=== PATIENT | female | born 1960 | race Caucasian/White ===

== ENCOUNTER 2018-05-13 05:52 | Inpatient (IN) | payer OTHER ==
[2018-05-06 09:26] VITALS: BMI 33.3
[~2018-05-13 05:52] MED LIST: CEFAZOLIN 2 GM/D5W 2 GM/50 ML ML IVPB ONE; CELECOXIB 200 MG CAPSULE PO ONE; PANTOPRAZOLE 40 MG TABLET (FP) PO ONE; ROPIVICAINE 0.2%/MORPH PF/KETOROLAC - 51ML DISP.SYRINGE IA ONE; TRANEXAMIC ACID 1000 MG/10 ML VIAL IVPUSH ONE; oxyCODONE HCL 10 MG SUSTAINED ACTING TABLET PO ONE
[2018-05-13] MEDS ORDERED: oxyCODONE HCL 10 MG SUSTAINED ACTING TABLET ONE (06:47)
[2018-05-13] MEDS ORDERED: PANTOPRAZOLE 40 MG TABLET (FP) ONE (06:47)
[2018-05-13] MEDS ORDERED: CELECOXIB 200 MG CAPSULE ONE (06:48)
[2018-05-13] MEDS ORDERED: BUPIVACAINE LIPOSOME/PF (EXPAREL) 266 MG/20 ML VIAL ONE (07:35)
[2018-05-13] MEDS ORDERED: BUPIVACAINE HCL/PF (5 MG/ML) 30 ML VIAL IJ ONE (07:35)
[2018-05-13] MEDS ORDERED: SODIUM CHLORIDE 0.9% P/F 10 ML VIAL IJ ONE (07:35)
[2018-05-13] MEDS ORDERED: MIDAZOLAM HCL 2 MG/2 ML SINGLE DOSE VIAL ONE (07:35)
--- NOTE | 2018-05-13 07:58 | HP ---
Admitting History and Physical - Admission Chief Complaint: right knee pain x years History of Present Illness: 57 year old female presents in regard to her right knee. Status post previous right total knee arthroplasty. Patient complains of pain, limited ROM, difficulty ambulating and difficulty completing ADLs. Patient has failed conservative treatment measures including PO medication, activity modification, injections and exercise program. At this point, patient would like to proceed with surgical intervention - Revision right total knee arthroplasty. 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 - Smoking History Smoking history: Former smoker Have you smoked in the past 12 months: No If you are a former smoker, when did you quit?: 10 y ago - Alcohol/Substance Use Hx Alcohol Use: No Home Medications - Allergies Allergies/Adverse Reactions: Allergies Allergy/AdvReac Type Severity Reaction Status Date / Time gabapentin [From Neurontin] Allergy seizure Verified 05/06/18 09:38 metoclopramide [From Reglan] Allergy Rash Verified 05/06/18 09:38 Penicillins Allergy Rash Verified 05/06/18 09:38 prochlorperazine Allergy Verified 05/06/18 09:38 [From Compazine] sumatriptan [From Imitrex] Allergy Rash Verified 05/06/18 09:38 trazodone Allergy Rash Verified 05/06/18 09:38 amitriptyline [From Elavil] AdvReac urine Verified 05/06/18 09:38 retention duloxetine [From Cymbalta] AdvReac internal Verified 05/06/18 09:38 bleeding - Home Medications Home Medications: Ambulatory Orders Albuterol Sulfate Inhaler - [Ventolin Hfa Inhaler -] 1 puff IH PRN PRN 05/06/18 Cetirizine HCl 10 mg PO DAILY 05/06/18 Cholecalciferol (Vitamin D3) [Vitamin D3] 1,000 unit PO DAILY 05/06/18 Cyclobenzaprine HCl [Flexeril -] 10 mg PO DAILY 05/06/18 Fentanyl 50 mcg TD DAILY 05/06/18 Furosemide [Lasix] 20 mg PO DAILY 05/06/18 Lubiprostone [Amitiza] 24 mcg PO DAILY 05/06/18 Omeprazole Magnesium [Prilosec Otc] 20 mg PO DAILY 05/06/18 Oxycodone HCl/Acetaminophen [Percocet 10-325 mg Tablet] 1 each PO TID 05/06/18 Pregabalin [Lyrica] 100 mg PO TID 05/06/18 Propranolol HCl 40 mg PO BID 05/06/18 Salmeterol/Fluticasone [Advair 100Mcg/50Mcg -] 1 inh IH DAILY 05/06/18 Topiramate [Topamax] 50 mg PO DAILY 05/06/18 Physical Examination Vital Signs: Vital Signs Temperature 98 F 05/13/18 06:54 Pulse Rate 56 L 05/13/18 06:54 Respiratory Rate 18 05/13/18 06:54 Blood Pressure 130/82 05/13/18 06:54 O2 Sat by Pulse Oximetry (%) Constitutional: Yes: Well Nourished, No Distress Eyes: Yes: Conjunctiva Clear HENT: Yes: Atraumatic, Normocephalic Neck: Yes: Supple Cardiovascular: Yes: Regular Rate and Rhythm Respiratory: Yes: Regular Gastrointestinal: Yes: Soft ...Rectal Exam: Yes: Deferred Musculoskeletal: Yes: Joint Swelling (Right knee) Assessment/Plan 57 year old female presents in regard to her right knee. Status post previous right total knee arthroplasty. Patient complains of pain, limited ROM, difficulty ambulating and difficulty completing ADLs. Patient has failed conservative treatment measures including PO medication, activity modification, injections and exercise program. At this point, patient would like to proceed with surgical intervention - Revision right total knee arthroplasty. Pros, cons , risks, benefits and alternatives of a revision right total knee arthroplasty was discussed with the patient at length. Patient confirms her understanding and consents to proceed with a revision right total knee arthroplasty.
[2018-05-13] MEDS ORDERED: TRANEXAMIC ACID 1000 MG/10 ML VIAL ONE ×2 (08:00→08:53)
[2018-05-13] MEDS ORDERED: VANCOMYCIN 1,000 MG VIAL (RESTRICTED TO ID ONLY) ONE (08:01)
[2018-05-13] MEDS ORDERED: ceFAZolin SODIUM 1 GM VIAL ONE ×6 (08:01→14:27)
[2018-05-13] MEDS ORDERED: ROPIVICAINE 0.2%/MORPH PF/KETOROLAC - 51ML DISP.SYRINGE IA ONE ×3 (08:02→14:16)
[2018-05-13] MEDS ORDERED: PROPOFOL 20 ML ONE ×6 (08:11→13:08)
[2018-05-13] MEDS ORDERED: TRANEXAMIC ACID 1000 MG/10 ML VIAL IVPB ONE ×2 (09:43→14:16)
[2018-05-13] MEDS ORDERED: VANCOMYCIN 1,000 MG VIAL (RESTRICTED TO ID ONLY) IVPB ONE ×2 (09:44→14:16)
[2018-05-13] MEDS ORDERED: ePHEDrine SULFATE 50 MG/1 ML AMPULE ONE (10:22)
[2018-05-13] MEDS ORDERED: GLYCOPYRROLATE 0.2 MG/1 ML VIAL ONE (11:06)
[2018-05-13] MEDS ORDERED: KETOROLAC TROMETHAMINE 30 MG/1 ML VIAL ONE (13:45)
[2018-05-13] MEDS ORDERED: ACETAMINOPHEN INJECTION 100 ML IVPB ONE (13:45)
[2018-05-13] MEDS ORDERED: traMADol HCL 50 MG TABLET ONE (13:45)
[2018-05-13] MEDS ORDERED: ONDANSETRON 4 MG/2 ML VIAL IVPUSH PRN ×2 (14:19→15:53)
[2018-05-13] MEDS ORDERED: oxyCODONE HCL 5 MG TABLET PO PRN (14:20)
[2018-05-13] MEDS ORDERED: LACTATED RINGERS SOLUTION 1,000 ML IV SCH ×2 (14:30→16:00)
--- NOTE | 2018-05-13 15:49 | OP ---
Operative Note - Note: Operative Date: 05/13/18 Pre-Operative Diagnosis: R knee painful/failed knee replacement Operation: Revision R TKA Findings: see dictation Post-Operative Diagnosis: Same as Pre-op Surgeon: Jasper Mercedes Sewing Supervisor: Nguyen Arriaga Anesthesia: Spinal Estimated Blood Loss (mls): 200
[2018-05-13] MEDS ORDERED: ALBUTEROL SO4 8 GM HFA INHALER IH PRN (15:51)
[2018-05-13] MEDS ORDERED: ACETAMINOPHEN 1000 MG/100 ML VIAL (NON FORMULARY) IVPB ONE (15:53)
[2018-05-13] MEDS ORDERED: MAGNESIUM HYDROX 2400MG/30ML ORAL SUSPENSION 30 ML CUP PO PRN (15:53)
[2018-05-13] MEDS ORDERED: MAG HYDROX/AL HYDROX/SIMETH 30 ML UNIT-DOSE CUP PO PRN (15:53)
[2018-05-13] MEDS ORDERED: FENTANYL PATCH WASTE TD PRN (16:06)
[2018-05-13] MEDS: traMADol HCL 50 MG TABLET PO SCH ×2 (16:08→22:31)
[2018-05-13] MEDS: oxyCODONE HCL 5 MG TABLET PO PRN (18:28)
[2018-05-13] MEDS ORDERED: DEXAMETHASONE SOD PHOSPHATE 10 MG/1 ML VIAL IVPB ONE (20:00)
[2018-05-13] MEDS: SENNOSIDES/DOCUSATE COMBO (SENNA PLUS) TABLET (UD) PO SCH (22:18)
[2018-05-13] MEDS: PREGABALIN 50 MG CAPSULE PO SCH (22:30)
[2018-05-13] MEDS: ASCORBIC ACID 500 MG TABLET (FP) PO SCH (22:30)
[2018-05-13] MEDS: oxyCODONE HCL 10 MG SUSTAINED ACTING TABLET PO SCH (22:31)
[2018-05-13] MEDS: ACETAMINOPHEN 325 MG TABLET (FP) PO SCH (22:31)
[2018-05-13] MEDS: CEFAZOLIN 2 GM/D5W 2 GM/50 ML ML IVPB SCH (22:32)
[2018-05-14] MEDS: traMADol HCL 50 MG TABLET PO SCH ×4 (03:17→22:03)
[2018-05-14] MEDS: ACETAMINOPHEN 325 MG TABLET (FP) PO SCH ×4 (03:18→22:04)
[2018-05-14] MEDS: PREGABALIN 50 MG CAPSULE PO SCH ×3 (06:07→22:03)
[2018-05-14] MEDS: CEFAZOLIN 2 GM/D5W 2 GM/50 ML ML IVPB SCH (06:11)
[2018-05-14 07:54] LABS: HEMATOCRIT 33.7 % (32.4-45.2); HEMOGLOBIN 11.2 GM/dl (10.7-15.3); MCH 30.4 pg (25.7-33.7); MCHC 33.3 g/dl (32.0-36.0); MEAN CELL VOLUME 91.4 fl (80-96); MEAN PLT VOLUME 10.3 fl (7.5-11.1); PLATELET COUNT 178 K/MM3 (134-434); RBC 3.69 M/mm3 (3.60-5.2); RDW 13.6 % (11.6-15.6); WHITE BLOOD COUNT 6.4 K/mm3 (4.0-10.8)
[2018-05-14] MEDS: ASPIRIN 325 MG TABLET PO SCH ×2 (08:13→08:16)
[2018-05-14 08:16] LABS: BLOOD UREA NITROGEN 12 mg/dl (7-18); CHLORIDE 103 mmol/L (98-107); CREATININE 0.8 mg/dl (0.6-1.3); GLUCOSE,RANDOM 173 mg/dl (74-106); POTASSIUM 3.8 mmol/L (3.5-5.1); SODIUM 135 mmol/L (136-145)
--- NOTE | 2018-05-14 08:16 | OP ---
DATE OF OPERATION: 05/13/2018 PREOPERATIVE DIAGNOSIS: Right painful/loose total knee replacement. POSTOPERATIVE DIAGNOSIS: Right painful/loose total knee replacement. PROCEDURE: Revision of right total knee replacement, femoral and tibial components. ATTENDING: Jasper Mercedes MD ANIMAL BIOLOGIST: CLARI Brian. ANESTHESIA: Spinal plus sedation. ESTIMATED BLOOD LOSS: 200 mL. COMPLICATIONS: None. DISPOSITION: The patient was transferred to the PACU in stable condition. IMPLANTS USED: Rylee Triathlon TS size 2 femoral component with a 15 x 50 mm stem, Triathlon TS size 3 tibial components with 12 x 100 mm offset stem, and medial and lateral 5-mm augments, 16-mm total stabilized polyethylene component. INDICATIONS: This is a 57-year-old female who was referred to us by her primary surgeon for evaluation for revision of total knee replacement. She had had a primary right total knee replacement done several years prior and had developed worsening chronic pain in this joint. Infection workup had proved to be negative and ultimately bone scan showed uptake surrounding the components suggestive of loosening. She underwent extensive nonoperative management with her primary surgeon and was referred for a revision procedure as she had significant pain and ambulatory dysfunction and could not continue to accept the knee the way it was. She was seen and examined by Dr. Mercedes and felt to be an appropriate candidate for revision total knee arthroplasty. The risks, benefits, and alternatives to the procedure were explained to the patient, and the patient desired to have the procedure performed. DESCRIPTION OF PROCEDURE: On the day of surgery, the patient was taken to the operating room and placed on the OR table. Spinal anesthesia was administered by the anesthesiologist. The patient was then positioned supine on the table, and all bony prominences were padded. A tourniquet was placed in the proximal thigh. The right lower extremity was then prepped and draped in the usual sterile fashion, and intravenous antibiotics were given for infection prophylaxis. A surgical time-out was then performed with the team, and the patients identity, procedure, side, availability of implants, and the administration of antibiotics was confirmed. With the knee flexed, a midline incision was made and carried down through the subcutaneous fat to the underlying retinaculum. This incision incorporated the previous knee replacement incision scar. A medial parapatellar arthrotomy was performed. This was followed by a subperiosteal dissection of the tissue off the proximal, medial tibia. A portion of fat pad and scar tissue was removed from under the patellar tendon, which was found to be fibrotic and thickened. A small portion of fat and scare tissue was excised off the distal supracondylar femur, as well. Additional arthrolysis was performed as scar tissue was removed using electrocautery and sharp dissection to reestablish the medial and lateral gutters. The knee was then flexed further and the polyethylene insert was removed to create space to work and to provide greater visualization of the components. The patellar component was found to be well positioned and well fixed and was left alone. Hohmann retractors were then placed around the distal femur. A bone tamp was used to gently percuss the femur and no grossly obvious loosening was found. Flexible rigid osteotomes were then used to separate the femoral component from the underlying bone taking care to preserve as much bone stock as possible. We were able to remove the femoral component without removing any bill moore's slough bone. Attention was then turned to the tibia. Again, the bone tamp was used to percuss the tibia, and it was not found to have any gross motion on exam. The tibial tray did appear to have slightly subsided into the cancellous bone of the tibia leaving a rim of cortex that had risen above the level of the base of the baseplate. Flexible and rigid osteotomies were then used to separate the tibial component from the underlying bone, again taking care to preserve as much bone stock as possible. We were able to remove the tibial component without losing any significant amount of host bone. The femoral and tibial cutting guides inn the Triathlon TS set were then assembled as directed and used to perform cleanup cuts on the distal femur and proximal tibia. Reamers were used to ream the intramedullary canals for the placement of stemmed components, and the appropriate instrumentation was used to calculate any offset needed to attach the components to the stems. Once this was completed, trial components were assembled, and placed in the joints. The knee was then taken through a full range of motion, and soft tissue balance was assessed in both flexion and extension and found to be appropriate. The knee was stable throughout the full range of motion and was found to have both good balance and good patellar tracking. All the trial components were then removed. All bony surfaces were cleaned with pulsatile lavage and dried. Bone cement was then prepared on the back table, and final components were assembled and cemented in place in the usual fashion. Extruded cement was removed. The polyethylene trial was placed, the knee was put into extension, and axial pressure was applied for compression while the cement hardened. Once the cement had hardened, the knee was taken through a full range of motion to assess stability, balance, and patellar tracking. This was found to be optimal, and the trial polyethylene was removed and exchanged for the appropriately sized real implant. The wound was then thoroughly irrigated with normal saline. No. 2 FiberWire and No. 0 VLoc 180 barbed sutures were used to close the arthrotomy. Then, 2-0 VLoc 90 running barbed suture was used for the subcutaneous tissues. The skin was closed using both 3-0 VLoc 90 suture in a running subcuticular fashion and Dermabond skin adhesive. Once this was completed a sterile Aquacel dressing was applied, the tourniquet was then deflated, and the patient was awakened and taken to the PACU in stable condition. Ever [id number]
[2018-05-14 08:18] LABS: ANION GAP 14 MMOL/L (8-16); CALCIUM 8.3 mg/dl (8.4-10.2); CO2 18 mmol/L (22-28)
[2018-05-14] MEDS ORDERED: PT OWN MED DRAWER 7, Y5N ONE ×3 (09:05→21:40)
[2018-05-14] MEDS: FLUTICASONE/SALMETEROL 100 MCG/50 MCG DISKUS IH SCH ×2 (09:18→22:04)
[2018-05-14] MEDS: SENNOSIDES/DOCUSATE COMBO (SENNA PLUS) TABLET (UD) PO SCH ×2 (09:18→22:09)
[2018-05-14] MEDS: PANTOPRAZOLE 40 MG TABLET (FP) PO SCH (09:19)
[2018-05-14] MEDS: MULTIVITAMINS (DAILY MVI) TABLET (FP) PO SCH (09:19)
[2018-05-14] MEDS: TOPIRAMATE 25 MG TABLET (FP) PO SCH (09:20)
[2018-05-14] MEDS: ASCORBIC ACID 500 MG TABLET (FP) PO SCH ×2 (09:20→22:03)
[2018-05-14] MEDS: oxyCODONE HCL 10 MG SUSTAINED ACTING TABLET PO SCH ×2 (09:21→22:02)
[2018-05-14] MEDS: FUROSEMIDE 20 MG TABLET (FP) PO SCH (09:22)
[2018-05-14] MEDS: APIXABAN 2.5 MG TABLET PO SCH ×2 (09:22→22:04)
[2018-05-14] MEDS ORDERED: PATIENT'S OWN MEDICATION (NON-FORMULARY) (Lubiprostone [Amitiza] 24 MCG) PO SCH (10:00)
[2018-05-14] MEDS ORDERED: fentaNYL 50mcg/hr PATCH.TD72 TD SCH ×3 (10:00)
--- NOTE | 2018-05-14 10:07 | PN ---
Progress Note (short form) - Note Progress Note: 57F POD1 s/p revision R TKR under spinal anesthetic with peripheral nerve blocks for post operative pain relief. Pt states that pain is well controlled and reports no anesthetic complications. AVSS. Motor and sensory intact in bilateral lower extremities. Continue current regimen.
[2018-05-14] MEDS: oxyCODONE HCL 5 MG TABLET PO PRN (14:27)
--- NOTE | 2018-05-14 21:06 | PN ---
Progress Note (short form) - Note Progress Note: Pt seen and examined. Doing well. Walked 500+ feet with PT. Pain controlled. AVSS Selected Entries 05/14/18 14:07 Temperature 98.3 F Pulse Rate 77 Respiratory 18 Rate Blood Pressure 114/58 L O2 Sat by Pulse 97 Oximetry (%) Oxygen Delivery Room Air Method Laboratory Tests 05/14/18 05/14/18 07:10 07:10 WBC 6.4 Hgb 11.2 Hct 33.7 Plt Count 178 Sodium 135 L Potassium 3.8 Chloride 103 Carbon Dioxide 18 L Anion Gap 14 BUN 12 Creatinine 0.8 Creat Clearance w eGFR > 60 Random Glucose 173 H Calcium 8.3 L Gen: NAD RLE: c/d/i, NVID A/P POD#1 s/p revision R TKA PT/OOB D/C home in AM
--- NOTE | 2018-05-14 21:14 | DS ---
Physical Examination Vital Signs: Vital Signs Temperature 98.3 F 05/14/18 14:07 Pulse Rate 77 05/14/18 14:07 Respiratory Rate 18 05/14/18 14:07 Blood Pressure 114/58 L 05/14/18 14:07 O2 Sat by Pulse Oximetry (%) 97 05/14/18 14:07 Labs: CBC, BMP 05/14/18 07:10 05/14/18 07:10 Discharge Summary Reason For Visit: MECHANICAL LOOSENING OF INT RIGHT KNEE PROSTHETIC Current Active Problems Failed total right knee replacement (Acute) Procedures: Principal: revision R TKA Hospital Course: Admitted for elective surgery. Procedure performed without complications. Pt received postoperative antibiotic prophylaxis and DVT ppx. Ambulated with physical therapy. Stable for discharge home with outpatient followup. Condition: Stable - Instructions Diet, Activity, Other Instructions: Dr. Mercedes - Knee Replacement Instructions Keep the Aquacel dressing on until removed by Dr. Mercedes in 10-14 days - it is antibacterial and waterproof and you can shower with it on. Call the office for a follow-up appointment with Dr. Mercedes in 10-14 days. Take ELIQUIS 2.5mg twice daily for 35 days to prevent blood clots in your legs. Resume taking omeprazole daily to protect against heartburn and ulcers. Take Cephalexin (antibiotic) 3x/day for 14 days to help prevent skin infection. Take a multivitamin, stool softener, and extra Vitamin C supplement daily. For pain: *Mild pain (1-3/10): Take 1 Tramadol tablet every 4 hours as needed. Moderate pain (4-6/10): Take 1 Tramadol tablet and 1 Percocet tablet every 4 hours as needed. Severe pain (7-10/10): Take 1 Tramadol tablet and 2 Percocet tablets every 4 hours as needed. Activity: You can put as much weight on the operative leg as you want. Right after you get home, there will be a physical therapist coming to your house to help you walk around and bend/straighten your knee. After your follow-up appointment, you will be sent for more intensive outpatient physical therapy which will include machines and equipment that the home therapist cannot bring to your house. Always use a walker or cane for balance and to prevent falls. Expect to see swelling/bruising from the operative site all the way down to your toes. Wear the compression stocking on the operative side during the day to minimize how much swelling there is in your foot/ankle. Don't wear the stocking at night. You don't have to wear a stocking on the other side. Disposition: [facility]/HOME HEALTH CARE - Home Medications Comprehensive Discharge Medication List: Ambulatory Orders Albuterol Sulfate Inhaler - [Ventolin HFA Inhaler -] 1 puff IH PRN PRN 05/06/18 Cetirizine HCl 10 mg PO DAILY 05/06/18 Cholecalciferol (Vitamin D3) [Vitamin D3] 1,000 unit PO DAILY 05/06/18 Cyclobenzaprine HCl [Flexeril -] 10 mg PO DAILY 05/06/18 Fentanyl 50 mcg TD DAILY 05/06/18 Furosemide [Lasix] 20 mg PO DAILY 05/06/18 Lubiprostone [Amitiza] 24 mcg PO DAILY 05/06/18 Omeprazole Magnesium [Prilosec Otc] 20 mg PO DAILY 05/06/18 Pregabalin [Lyrica] 100 mg PO TID 05/06/18 Propranolol HCl 40 mg PO BID 05/06/18 Salmeterol/Fluticasone [Advair 100Mcg/50Mcg -] 1 inh IH DAILY 05/06/18 Topiramate [Topamax] 50 mg PO DAILY 05/06/18 Apixaban [Eliquis -] 2.5 mg PO BID #70 tablet 05/14/18 Ascorbic Acid [Vitamin C -] 500 mg PO BID tablet 05/14/18 Cephalexin Monohydrate [Keflex -] 500 mg PO TID #42 capsule 05/14/18 Multivitamins [Multivit (RH Formulary)] 1 tab PO DAILY tab 05/14/18 Oxycodone HCl/Acetaminophen [Percocet 5-325 mg Tablet] 1 - 2 tab PO Q4H PRN #60 tablet MDD 10 05/14/18 Sennosides/Docusate Sodium [Pericolace -] 2 tablet PO BID tablet 05/14/18 traMADol HCL [Ultram -] 50 mg PO Q4H PRN #90 tablet MDD 6 05/14/18
[2018-05-15] MEDS: traMADol HCL 50 MG TABLET PO SCH ×2 (03:01→10:30)
[2018-05-15] MEDS: ACETAMINOPHEN 325 MG TABLET (FP) PO SCH ×2 (03:01→10:00)
[2018-05-15] MEDS: PREGABALIN 50 MG CAPSULE PO SCH (05:46)
[2018-05-15 06:04] VITALS: BP 140/75; PULSE 63; TEMP 97.9
[2018-05-15 08:07] LABS: HEMATOCRIT 33.3 % (32.4-45.2); HEMOGLOBIN 10.9 GM/dl (10.7-15.3); MCH 29.9 pg (25.7-33.7); MCHC 32.7 g/dl (32.0-36.0); MEAN CELL VOLUME 91.5 fl (80-96); MEAN PLT VOLUME 10.2 fl (7.5-11.1); PLATELET COUNT 198 K/MM3 (134-434); RBC 3.64 M/mm3 (3.60-5.2); RDW 13.8 % (11.6-15.6); WHITE BLOOD COUNT 11.1 K/mm3 (4.0-10.8)
[2018-05-15] MEDS ORDERED: PT OWN MED DRAWER 7, Y5N ONE (10:22)
[2018-05-15] MEDS: oxyCODONE HCL 10 MG SUSTAINED ACTING TABLET PO SCH (10:29)
[2018-05-15] MEDS: MULTIVITAMINS (DAILY MVI) TABLET (FP) PO SCH (10:30)
[2018-05-15] MEDS: FUROSEMIDE 20 MG TABLET (FP) PO SCH (10:30)
[2018-05-15] MEDS: TOPIRAMATE 25 MG TABLET (FP) PO SCH (10:30)
[2018-05-15] MEDS: ASCORBIC ACID 500 MG TABLET (FP) PO SCH (10:30)
[2018-05-15] MEDS: PANTOPRAZOLE 40 MG TABLET (FP) PO SCH (10:30)
[2018-05-15] MEDS: SENNOSIDES/DOCUSATE COMBO (SENNA PLUS) TABLET (UD) PO SCH (10:30)
[2018-05-15] MEDS: APIXABAN 2.5 MG TABLET PO SCH (10:32)
[2018-05-15] MEDS: FLUTICASONE/SALMETEROL 100 MCG/50 MCG DISKUS IH SCH (10:32)
--- NOTE | 2018-05-15 14:00 | PATH ---
Surgical Pathology Report Patient Name: THELMA ARTEAGA Med. Rec. #: [id number] /Age/Gender: 1960 (Age: 57) / F Account: [id number] Location: [facility] MED-SURG Taken: 05/13/2018 Received: 05/13/2018 Reported: 05/15/2018 Physicians: Jasper Mercedes M.D. 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 BONE, KNEE, RIGHT, REVISION TOTAL KNEE REPLACEMENT: BONE WITH DEGENERATIVE CHANGES AND FOCAL INTERSTITIAL HEMORRHAGE. B. KNEE IMPLANTS, RIGHT, REMOVAL: SURGICAL HARDWARE (KNEE PROSTHESIS). MACROSCOPIC DIAGNOSIS. . Electronically Signed Marianela Box M.D. Gross Description A. Received in formalin labeled "right knee bone," is a 5.0 x 2.1 x 0.8 cm focally hemorrhagic portion of bone. Power Generating Plant Operator sections are submitted in one cassette, following decalcification. B. Received fresh labeled "right knee implant," are 3 mckee metallic and white plastic portions of hardware averaging 6.0 cm in greatest dimension, consistent with knee prosthesis. No soft tissue is present. No sections are submitted, gross only. DL/05/14/2018 saudi05/14/2018
== END 2018-05-15 12:03 | disposition home health service (06) | DRG 302 ==
LOC: FM/S 05:52
PROVIDERS: ADMIT Student in an Organized Health Care Education/Training Program; ATTEND Student in an Organized Health Care Education/Training Program
PROC: 0SRT0J9 Replacement of Right Knee Joint, Femoral Surface with Synthetic Substitute, Cemented, Open Approach (ICD-10-PCS; 2018-05-13)
PROC: 0SPV0JZ Removal of Synthetic Substitute from Right Knee Joint, Tibial Surface, Open Approach (ICD-10-PCS; 2018-05-13)
PROC: 0SRV0J9 Replacement of Right Knee Joint, Tibial Surface with Synthetic Substitute, Cemented, Open Approach (ICD-10-PCS; 2018-05-13)
PROC: 0SPT0JZ Removal of Synthetic Substitute from Right Knee Joint, Femoral Surface, Open Approach (ICD-10-PCS; principal; 2018-05-13 09:20)
DX: T84.032A Mechanical loosening of internal right knee prosthetic joint, initial encounter (principal); Y83.8 Other surgical procedures as the cause of abnormal reaction of the patient, or of later complication, without mention of misadventure at the time of the procedure; J45.909 Unspecified asthma, uncomplicated; K21.9 Gastro-esophageal reflux disease without esophagitis; Z87.891 Personal history of nicotine dependence
CPT/HCPCS: 36415; 73560-TC-RT-FY; 80048; 85027; 88300-TC; 88304-TC; 88311-TC; 94760; 97116-GP; 97162-GP; J0131; J1100